=== PATIENT | female | born 1975 | race Caucasian/White ===

== ENCOUNTER → 2019-02-01 | Outpatient (CLI) | payer OTHER | LOC: M.RAD 09:19 → M.ULTRA 10:30 | DX: Z12.31 Encounter for screening mammogram for malignant neoplasm of breast (principal); R74.0 Nonspecific elevation of levels of transaminase and lactic acid dehydrogenase [LDH]; R10.9 Unspecified abdominal pain ==

== ENCOUNTER → 2019-02-14 | Outpatient (CLI) | payer OTHER | LOC: M.RAD 02-05 08:22 | DX: N63.20 Unspecified lump in the left breast, unspecified quadrant (principal); R92.1 Mammographic calcification found on diagnostic imaging of breast ==

== ENCOUNTER → 2019-08-19 | Outpatient (CLI) | payer OTHER | LOC: M.ULTRA 10:48 | DX: N60.02 Solitary cyst of left breast (principal); R92.2 Inconclusive mammogram ==